=== PATIENT | male | born 1945 | race Caucasian/White ===

== ENCOUNTER → 2016-12-18 | Outpatient (CLI) | payer MEDICARE ==
[~2016-12-18] MED LIST: AMLO5TAB4 PO; ANTIBIOTIC PO; AZIT250T89 PO; BENZ100C4 PO; CEFD300C37 PO; CLON0.1T PO; DIGO125T PO; ESCI10TA10 PO; FENO48TA5 PO; GLYB1TAB13 PO; HYDR-3144 PO; HYDR12.58 PO; LEVO750T26 PO; LOSA50TA2 PO; LOSA50TA6 PO; METF500T PO; METH4TAB6 PO; NYST1000 PO; OMEP-110 PO; PARO10TA73 PO; SIMV40TA3 PO; SOTA80TA PO; SULF1TAB24 PO; WARF2.5T73 PO; WARF2.5T73 PO-COUM; WARF5TAB7 PO; [UNRECOGNIZED DRUG - OTHER] PO; metformin PO
== END | disposition home or self-care (01) ==
LOC: CFH 09:51
PROVIDERS: ATTEND Internal Medicine Cardiovascular Disease
DX: I25.5 Ischemic cardiomyopathy (principal)
CPT/HCPCS: 93306

== ENCOUNTER 2017-10-14 20:03 | Inpatient (IN) | payer MEDICARE ==
[~2017-10-14] VITALS: Ht 175.3 cm; Wt 64.2 kg
[~2017-10-14 20:03] MED LIST changes: +BENZ-17 PO; -BENZ100C4 PO; +GLYB-137 PO; -GLYB1TAB13 PO; -HYDR-3144 PO; +HYDR-3245 PO; +WARF-36 PO; -WARF5TAB7 PO
[2017-10-14] MEDS ORDERED: OMNIPAQUE 350 MG/ML, 100ML BOTTLE ONE (20:32)
[2017-10-14] MEDS ORDERED: SODIUM CHLORIDE 0.9% 1,000ML IVBOLUS ONE (21:00)
[2017-10-14] MEDS ORDERED: ONDANSETRON 2MG/ML, 2ML IVPush ONE (21:00)
[2017-10-14] MEDS ORDERED: SODIUM CHLORIDE FLUSH 10ML SYR IVF ONE (21:00)
[2017-10-14 21:04] LABS: BASOPHILS # (AUTO) 0.11 x10^3/uL (0-0.1); BASOPHILS % (AUTO) 1 % (0-1); EOSINOPHILS # (AUTO) 0.31 x10^3/uL (0-0.4); EOSINOPHILS % (AUTO) 3 % (1-7); LYMPHOCYTES # (AUTO) 2.38 x10^3/uL (1-3.4); LYMPHOCYTES % (AUTO) 21 % (22-44); MD NO; MEAN CORPUSCULAR HGB CONC 32.2 g/dL (33.2-36.2); MEAN CORPUSCULAR VOLUME 83.9 fL (81-97); MEAN PLATELET VOLUME 8.2 fL (7.4-10.4); MONOCYTES # (AUTO) 0.92 x10^3/uL (0.2-0.8); MONOCYTES % (AUTO) 8 % (2-9); NEUTROPHILS # (AUTO) 7.63 x10^3/uL (1.8-6.8); NEUTROPHILS % (AUTO) 67 % (42-75); PLATELET COUNT 418 x10^3/uL (130-400); RED BLOOD COUNT 4.18 x10^6/uL (4.38-5.82); RED CELL DISTRIBUTION WIDTH 15.9 % (9.4-14.8)
[2017-10-14] MEDS ORDERED: ONDANSETRON ODT 4 MG ONE (21:04)
[2017-10-14] MEDS ORDERED: MORPHINE SULFATE 4 MG/ML, 1ML ONE (21:08)
[2017-10-14 21:11] LABS: TROPONIN I < 0.015 ng/mL (0.000-0.045)
[2017-10-14 21:13] LABS: ALANINE AMINOTRANSFERASE 11 U/L (12-78); ALBUMIN 2.9 g/dL (3.4-5.0); ANION GAP 9 mmol/L (5-15); CALCIUM 9.2 mg/dL (8.5-10.1); CHLORIDE 105 mmol/L (98-107)
[2017-10-14 21:15] LABS: ALKALINE PHOSPHATASE 50 U/L (45-117); BILIRUBIN,TOTAL 0.3 mg/dL (0.2-1.0); TOTAL PROTEIN 7.8 g/dL (6.4-8.2)
[2017-10-14] MEDS ORDERED: MORPHINE SULFATE 4 MG/ML, 1ML IVPush ONE (21:30)
[2017-10-14] MEDS ORDERED: APIX5TAB PO (22:39)
[2017-10-14] MEDS ORDERED: CLON0.5T20 PO (22:46)
[2017-10-14] MEDS ORDERED: SERT50TA5 PO (22:46)
[2017-10-14] MEDS ORDERED: SODIUM CHLORIDE 0.9% 1,000 ML IV SCH (22:47)
[2017-10-14] MEDS ORDERED: ONDANSETRON ODT 4 MG PO PRN (23:00)
[2017-10-14] MEDS ORDERED: hydrALAzine 20 MG/ML, 1ML IVPush PRN (23:00)
[2017-10-14] MEDS ORDERED: ACETAMINOPHEN 325 MG TABLET PO PRN (23:00)
[2017-10-14] MEDS ORDERED: morphine SULFATE 10 MG/ML, 1ML IVPush PRN (23:00)
[2017-10-14] MEDS ORDERED: BISACODYL 10 MG SUPP PR PRN (23:00)
[2017-10-14] MEDS ORDERED: PROMETHAZINE 25 MG/ML, 1ML IM PRN (23:00)
[2017-10-14] MEDS ORDERED: DOCUSATE 100 MG CAPSULE PO PRN (23:00)
[2017-10-14] MEDS ORDERED: OXYcodone IR 5MG TABLET PO PRN (23:00)
[2017-10-14] MEDS ORDERED: ONDANSETRON 2MG/ML, 2ML IVPush PRN (23:00)
[2017-10-14] MEDS ORDERED: POLYETHYLENE GLYCOL 17 GM PACKET PO PRN (23:00)
[2017-10-14 23:26] LABS: FREE T4 (FREE THYROXINE) 1.15 ng/dL (0.76-1.46); THYROID STIMULATING HORMONE 3.58 mIU/L (0.358-3.740)
[2017-10-14 23:38] LABS: HEMOGLOBIN A1C 6.2 % (4.2-6.3)
[2017-10-15] MEDS: LOSARTAN 50MG TABLET PO SCH ×3 (01:21→21:15)
[2017-10-15] MEDS: SIMVASTATIN 40 MG TABLET PO SCH ×2 (01:21→21:15)
[2017-10-15] MEDS: SOTALOL 80MG TABLET PO SCH ×3 (01:21→20:20)
[2017-10-15] MEDS: APIXABAN 5 MG TABLET PO SCH ×3 (01:22→21:14)
[2017-10-15 01:28] VITALS: BP 168/96
[2017-10-15 01:41] VITALS: BP 155/92
[2017-10-15 02:21] LABS: MICROSCOPIC NOT IND
[2017-10-15 02:23] LABS: CULTURE INDICATED? NO
[2017-10-15 05:11] LABS: BASOPHILS # (AUTO) 0.02 x10^3/uL (0-0.1); BASOPHILS % (AUTO) 0 % (0-1); EOSINOPHILS # (AUTO) 0.03 x10^3/uL (0-0.4); EOSINOPHILS % (AUTO) 0 % (1-7); LYMPHOCYTES % (AUTO) 24 % (22-44); MD NO; MEAN CORPUSCULAR HEMOGLOBIN 27.3 pg (27.5-34.5); MEAN CORPUSCULAR HGB CONC 32.5 g/dL (33.2-36.2); MEAN CORPUSCULAR VOLUME 83.9 fL (81-97); MEAN PLATELET VOLUME 8.2 fL (7.4-10.4); MONOCYTES # (AUTO) 0.68 x10^3/uL (0.2-0.8); MONOCYTES % (AUTO) 9 % (2-9); NEUTROPHILS # (AUTO) 5.23 x10^3/uL (1.8-6.8); NEUTROPHILS % (AUTO) 67 % (42-75); PLATELET COUNT 334 x10^3/uL (130-400); RED BLOOD COUNT 3.88 x10^6/uL (4.38-5.82); RED CELL DISTRIBUTION WIDTH 15.7 % (9.4-14.8)
[2017-10-15 05:17] LABS: CHLORIDE 107 mmol/L (98-107)
[2017-10-15 05:18] LABS: ALBUMIN 2.6 g/dL (3.4-5.0); ANION GAP 5 mmol/L (5-15)
[2017-10-15 05:21] LABS: ALANINE AMINOTRANSFERASE 12 U/L (12-78); ALKALINE PHOSPHATASE 44 U/L (45-117); BILIRUBIN,TOTAL 0.5 mg/dL (0.2-1.0); CHOL/HDL RATIO 1.9; CHOLESTEROL, TOTAL 83 mg/dL (140-239); CREATININE 0.66 mg/dL (0.7-1.3); HDL CHOL % 52 % (26-37); HDL CHOLESTEROL (DIRECT) 43 mg/dL (40-60); LDL CHOLESTEROL,CALCULATED 30 mg/dL (54-169); LDL/HDL RATIO 0.7 (0.5-3.0); TOTAL PROTEIN 6.7 g/dL (6.4-8.2); TRIGLYCERIDES 48 mg/dL (50-200); VLDL CHOLESTEROL 10 mg/dL (0-25)
[2017-10-15] MEDS: INSULIN LISPRO 100 UNITS/ML, PEN SQ-INSULIN SCH ×4 (07:00→21:00)
[2017-10-15 07:30] VITALS: BP 150/90
[2017-10-15] MEDS ORDERED: MAGNESIUM SULFATE PMX 2GM/50ML 50 ML IV ONE (07:30)
[2017-10-15 14:44] VITALS: BP 116/64
[2017-10-15 19:49] VITALS: BP 137/68
[2017-10-15] MEDS ORDERED: SERTRALINE 50MG TABLET PO SCH (21:00)
[2017-10-16 00:16] VITALS: BP 153/72
[2017-10-16] MEDS: INSULIN LISPRO 100 UNITS/ML, PEN SQ-INSULIN SCH ×3 (07:00→11:58)
[2017-10-16 08:56] VITALS: BP 153/83
[2017-10-16] MEDS: LOSARTAN 50MG TABLET PO SCH (09:20)
[2017-10-16] MEDS: SOTALOL 80MG TABLET PO SCH (09:20)
[2017-10-16] MEDS: APIXABAN 5 MG TABLET PO SCH (09:20)
[2017-10-16 13:41] VITALS: BP 163/72
== END 2017-10-16 15:12 | disposition home or self-care (01) | DRG 372 ==
LOC: ED 20:49 → EDIP 21:58 → 3NE 23:15
PROVIDERS: ADMIT Internal Medicine; ATTEND Internal Medicine
DX: A04.72 Enterocolitis due to Clostridium difficile, not specified as recurrent (principal); E44.0 Moderate protein-calorie malnutrition; I48.91 Unspecified atrial fibrillation; D64.9 Anemia, unspecified; E11.9 Type 2 diabetes mellitus without complications; I50.22 Chronic systolic (congestive) heart failure; I11.0 Hypertensive heart disease with heart failure; E78.5 Hyperlipidemia, unspecified; I25.10 Atherosclerotic heart disease of native coronary artery without angina pectoris; K52.9 Noninfective gastroenteritis and colitis, unspecified; I25.2 Old myocardial infarction; R11.2 Nausea with vomiting, unspecified; Z86.73 Personal history of transient ischemic attack (TIA), and cerebral infarction without residual deficits; Z87.891 Personal history of nicotine dependence; Z95.5 Presence of coronary angioplasty implant and graft; Z95.810 Presence of automatic (implantable) cardiac defibrillator; Z68.20 Body mass index [BMI] 20.0-20.9, adult
CPT/HCPCS: 36415; 74177; 80053; 80061; 81003; 82962; 83036; 83690; 83735; 84439; 84443; 84484; 85025; 87040; 93005; 96361; 96374; 96375; J2405; Q9967; J1815; J3475; J7030

== ENCOUNTER → 2020-03-26 | Outpatient (CLI) | payer MEDICARE ==
[~2020-03-26] MED LIST changes: +APIX5TAB PO; -CLON0.1T PO; +CLON0.1T22 PO; +CLON0.5T20 PO; -DIGO125T PO; +DIGO125T85 PO; +FENO48TA10 PO; -FENO48TA5 PO; -GLYB-137 PO; +GLYB1TAB18 PO; -HYDR12.58 PO; +HYDROCHLOROTH12.5 MG PO; +LOSA50TA14 PO; -LOSA50TA6 PO; +SERT50TA28 PO; +SIMV40TA20 PO; -SIMV40TA3 PO; +WARF2.5T32 PO; +WARF2.5T32 PO-COUM; -WARF2.5T73 PO; -WARF2.5T73 PO-COUM
== END | disposition home or self-care (01) ==
LOC: CFH 12:20
PROVIDERS: ATTEND Internal Medicine Cardiovascular Disease
DX: I08.8 Other rheumatic multiple valve diseases (principal); I25.5 Ischemic cardiomyopathy; I10 Essential (primary) hypertension; E78.5 Hyperlipidemia, unspecified; I25.2 Old myocardial infarction
CPT/HCPCS: 93306